=== PATIENT | female | born 1960 | race Caucasian/White ===

== ENCOUNTER 2016-08-18 23:33 | Emergency (ER) | payer OTHER ==
--- NOTE | ~2016-08-18 | CR181 ---
[facility]. [facility] A Service of [facility] & [facility] RADIOLOGY TEXT RESULTS PATIENT: SIL PATEL LOCATION: SED : 58 UNIT #: [id number] AGE: [address]: Benji Diaz MD SEX: F ORDER DR: [id number] [place] [id number] E MR#: [id number] Acc #: [id number] NAME: SIL PATEL : 1960 SEX: F STUDY DATE/TIME: 08/19/2016 0:33 UNIT: SED ROOM: STUDY DESCRIPTION: CR Lumbar Spine 2 or 3 Views Attending Physician: Benji Diaz M.D. Ordering Physician: Benji Diaz M.D. MEDICAL IMAGING REPORT This report is preliminary unless electronic signature is present. EXAM Lumbar spine. INDICATION Low back pain status post trauma. Fall. FINDINGS Three views of the lumbar spine without comparison. There is no fracture or subluxation. Vertebral body height and alignment is within normal limits. There is some mild degenerative disc disease throughout the lumbar spine. IMPRESSION No acute findings. Mild degenerative changes of the lumbar spine. Dictated by... Kishan Marcelo M.D. THIS IS AN ELECTRONICALLY VERIFIED REPORT Kishan Marcelo M.D. at 08/19/2016 11:39 PM WILVER/francisco TD: 08/19/2016 10:50 JOB #: [id number] MEDICAL IMAGING REPORT Page 1 of 1
[~2016-08-18 23:33] MED LIST: ASPIRIN81 M2; HUMALOG100 UNIT/1; LANTUS100 U/ML; LIPITOR; LYRICA; METOPROLOL; NEURONTIN300 MG; PLAVIX; PRILOSEC; TRAZODONE; TYLENOL325 M1
[2016-08-18] MEDS ORDERED: LOPRESSOR (23:58)
[2016-08-18] MEDS ORDERED: AZOR 10-20 MG1 EACH (23:59)
== END 2016-08-19 01:04 | disposition home or self-care (01) ==
LOC: SED 23:33
DX: S39.012A Strain of muscle, fascia and tendon of lower back, initial encounter (principal); J44.9 Chronic obstructive pulmonary disease, unspecified; K21.9 Gastro-esophageal reflux disease without esophagitis; I10 Essential (primary) hypertension; F17.200 Nicotine dependence, unspecified, uncomplicated; W01.0XXA Fall on same level from slipping, tripping and stumbling without subsequent striking against object, initial encounter; Y92.009 Unspecified place in unspecified non-institutional (private) residence as the place of occurrence of the external cause
CPT/HCPCS: 72100; 99283